=== PATIENT | female | born 1960 | race Caucasian/White ===

== ENCOUNTER 2017-01-09 14:23 | Outpatient (CLI) | payer OTHER | END 2017-01-09 14:24 | disposition home or self-care (01) | DX: R05 Cough (principal); R61 Generalized hyperhidrosis ==

== ENCOUNTER 2018-01-13 10:37 | Outpatient (CLI) | payer OTHER ==
--- NOTE | 2018-01-14 18:56 | Mammography Report ---
DIGITAL SCREENING MAMMOGRAM: 01/13/2018 CLINICAL INDICATION: A 57-year-old nulliparous patient for screening. COMPARISON: 01/2016, 05/2009. TECHNIQUE: Routine CC and MLO projections as well as bilateral laterally exaggerated craniocaudal views were obtained of the breasts. FINDINGS: The breasts again demonstrate heterogeneously dense fibroglandular parenchyma bilaterally. Coarse and punctate, typically benign calcifications are present. No suspicious masses, clustered microcalcifications, or regions of architectural distortion are identified. IMPRESSION: BENIGN FINDINGS. RECOMMENDATION: Routine annual screening unless otherwise clinically indicated. BIRADS category 2 benign findings. STANDARD QUALIFYING STATEMENTS 1. This examination was reviewed with the aid of Computed-Aided Detection (CAD). 2. A negative or benign imaging report should not delay biopsy if clinically suspicious findings are present. Consider surgical consultation if warranted. More than 5% of cancers are not identified by imaging. 3. Dense breasts may obscure an underlying neoplasm. TD: 01/14/2018 18:55
== END 2018-01-13 10:38 | disposition home or self-care (01) ==
LOC: DI 10:37
PROVIDERS: ATTEND Registered Nurse
DX: Z12.31 Encounter for screening mammogram for malignant neoplasm of breast (principal)
CPT/HCPCS: 77067

== ENCOUNTER 2018-01-13 10:38 | Outpatient (CLI) | payer OTHER ==
--- NOTE | 2018-01-13 14:07 | CT Report ---
CT OF CHEST WITHOUT CONTRAST FOR LUNG CANCER SCREENIN01/13/2018 CLINICAL INDICATION: A 57-year-old asymptomatic patient with a [id number] history of smoking, current smoker, for screening. TECHNIQUE: Axial CT images of the chest were obtained without intravenous contrast, using low dose screening technique. COMPARISON: Chest x-ray 01/09/2017. FINDINGS: The heart is not enlarged. There is mild atherosclerotic calcification of the aortic arch. No hilar or mediastinal lymphadenopathy is present. The lungs demonstrate emphysema and biapical scarring. No focal infiltrate, effusion, or pneumothorax is present. No suspicious pulmonary nodule or mass lesion is seen. Limited evaluation of upper abdominal structures demonstrates normal adrenal glands. Osseous structures demonstrate degenerative changes. IMPRESSION: EMPHYSEMA AND BIAPICAL SCARRING. NO SUSPICIOUS PULMONARY NODULE OR MASS LESION. RECOMMENDATIONS: CONTINUE ROUTINE ANNUAL SCREENING WITH LOW DOSE CT IN 12 MONTHS. LUNG RADS CATEGORY 2-BENIGN FINDINGS. TD: 01/13/2018 14:05
== END 2018-01-13 10:39 | disposition home or self-care (01) ==
LOC: DI 10:38
PROVIDERS: ATTEND Registered Nurse
DX: Z12.2 Encounter for screening for malignant neoplasm of respiratory organs (principal); J43.9 Emphysema, unspecified; R49.8 Other voice and resonance disorders; R06.2 Wheezing; F17.210 Nicotine dependence, cigarettes, uncomplicated

== ENCOUNTER 2018-02-17 09:39 | Outpatient (CLI) | payer OTHER ==
[2018-02-17 09:53] LABS: BASOPHILS # (AUTO) 0.1 10^3/uL (0.0-0.1); BASOPHILS % (AUTO) 0.9 %; EOSINOPHILS # (AUTO) 0.1 10^3/uL (0.0-0.7); EOSINOPHILS % (AUTO) 1.3 %; HGB - HEMOGLOBIN 14.7 g/dL (12.0-16.0); LYMPHOCYTES # (AUTO) 2.7 10^3/uL (1.5-3.5); LYMPHOCYTES % (AUTO) 31.6 %; MEAN CORPUSCULAR HEMOGLOBIN 27.2 pg (27.0-31.0); MEAN CORPUSCULAR HGB CONC 33.4 g/dL (32.0-36.0); MEAN CORPUSCULAR VOLUME 81.6 fL (81.0-99.0); MEAN PLATELET VOLUME 7.2 fL (7.9-10.8); MONOCYTES # (AUTO) 0.6 10^3/uL (0.0-1.0); MONOCYTES % (AUTO) 6.4 %; NEUTROPHILS # (AUTO) 5.2 10^3/uL (1.5-6.6); NEUTROPHILS % (AUTO) 59.8 %; PLT - PLATELET COUNT 234 10^3/uL (130-450); RED BLOOD COUNT 5.39 10^6/uL (4.20-5.40); RED CELL DISTRIBUTION WIDTH 15.9 % (12.0-15.0); WHITE BLOOD COUNT 8.7 x10^3/uL (4.8-10.8)
[2018-02-17 10:02] LABS: ALBUMIN 4.2 g/dL (3.2-5.5); ALBUMIN/GLOBULIN RATIO 1.3 (1.0-2.2); BILIRUBIN,TOTAL 0.3 mg/dL (0.2-1.0); CALCIUM 9.3 mg/dL (8.5-10.3); CREATININE 0.8 mg/dL (0.4-1.0); TOTAL PROTEIN 7.5 g/dL (6.7-8.2)
== END 2018-02-17 09:40 | disposition home or self-care (01) ==
LOC: LAB 09:39
PROVIDERS: ATTEND Otolaryngology Otolaryngology/Facial Plastic Surgery
DX: R49.0 Dysphonia (principal)
CPT/HCPCS: 36415; 80053; 85025; 93005

== ENCOUNTER 2018-11-30 12:01 | Outpatient (CLI) | payer OTHER ==
--- NOTE | 2018-11-30 17:18 | CT Report ---
Reason: CHRONIC MAXILLARY SINUSITIS Procedure Date: 11/30/2018 Accession Number: [id number] / [id number] Procedure: CT - Sinuses CPT Code: FULL RESULT: EXAM: CT SINUS EXAM DATE: 11/30/2018 12:13 PM. HISTORY: CHRONIC MAXILLARY SINUSITIS. COMPARISONS: None. TECHNIQUE: Routine multi-axial CT imaging performed through the sinuses. Iodinated IV contrast: None. Reconstructions: Multiplanar reformats. In accordance with CT protocol optimization, one or more of the following dose reduction techniques were utilized for this exam: automated exposure control, adjustment of mA and/or KV based on patient size, or use of iterative reconstructive technique. FINDINGS: RIGHT Frontal: Normal. Ethmoid: Normal. Maxillary: Normal. Sphenoid: Normal. Drainage Pathways: The frontal recess, ostiomeatal complex and sphenoethmoidal recess are patent and normal. LEFT Frontal: Normal. Ethmoid: Normal. Maxillary: Normal. Sphenoid: Normal. Drainage Pathways: The frontal recess, ostiomeatal complex and sphenoethmoidal recess are patent and normal. Nasal Cavity: Normal. No mass or significant anatomic abnormality evident. Osseous Structures: Anterior aspect of nasal septum bows to patient's right. A small left nasal septal spur. Orbits: Unremarkable. Other: Bilateral temporomandibular joint degenerative changes with narrowing of joint space and marginal osteophytes. IMPRESSION: 1. No sinusitis. 2. Bilateral temporomandibular joint degenerative changes. RADIA
== END 2018-11-30 12:02 | disposition home or self-care (01) ==
LOC: DI 12:01
PROVIDERS: ATTEND Otolaryngology Otolaryngology/Facial Plastic Surgery
DX: J32.0 Chronic maxillary sinusitis (principal)
CPT/HCPCS: 70486

== ENCOUNTER 2019-03-16 07:32 | Outpatient (CLI) | payer BC, OTHER ==
--- NOTE | 2019-03-18 09:06 | Ultrasound Report ---
Reason: ABDOMINAL PAIN,NAUSEA,VOMITING Procedure Date: 03/16/2019 Accession Number: [id number] / [id number] Procedure: US - Arterial Visceral Complete CPT Code: FULL RESULT: EXAM: RENAL ARTERY DOPPLER ULTRASOUND. EXAM DATE: 03/16/2019 09:18 AM. CLINICAL HISTORY: Abdominal pain, nausea, vomiting. COMPARISON: CT abdomen and pelvis 07/04/2015. TECHNIQUE: Real-time sonographic vascular imaging was performed by the hardwood floor sander through the renal arterial system with a linear transducer utilizing color-flow, Doppler flow, and spectral analysis. Multiple branch customer service representative static images were saved for review. FINDINGS: Aorta: 62cm/sec. Celiac [place]: Origin: 106.2 cm/sec. Proximal: 108.3 cm/sec. Mid: 129.4 cm/sec. Distal: 120.9 cm/sec. Hepatic Artery: 141 cm/sec. Splenic Artery: 151.4 cm/sec. Superior Mesenteric Artery Origin: 121.8 cm/sec. Proximal: 183.0 cm/sec. Mid: 128.8 cm/sec. Distal: 120.3 cm/sec. Inferior Mesenteric Artery: Origin: 131.3 cm/sec. Proximal: 127.1 cm/sec. Mid: 105.3 cm/sec. Distal: Not seen. Other: Several mobile gallstones are present. IMPRESSION: Elevated peak systolic velocities in the splenic and common hepatic arteries suggesting a stenosis greater than 70%. Confirmation could be made by CT angiography. Celiac axis, SMA, and KAITLIN appear within the normal range. Incidental note made of cholelithiasis. RADIA
== END 2019-03-16 07:33 | disposition home or self-care (01) ==
LOC: DI 07:32
PROVIDERS: ATTEND Physician Assistant
DX: R10.84 Generalized abdominal pain (principal); R11.2 Nausea with vomiting, unspecified
CPT/HCPCS: 93975

== ENCOUNTER 2019-04-29 08:40 | Outpatient (CLI) | payer OTHER ==
[2019-04-29] MEDS ORDERED: SINCALIDE 5 MCG VIAL ONE (10:08)
[2019-04-29] MEDS ORDERED: SINCALIDE IV ONE (11:49)
[2019-04-29] MEDS ORDERED: SODIUM CHLORIDE 0.9% IV ONE (11:49)
--- NOTE | 2019-04-29 14:53 | Nuclear Medicine Report ---
Reason: GENERALIZED ABDOMINAL PAIN Procedure Date: 04/29/2019 Accession Number: [id number] / [id number] Procedure: NM - Hepatobiliary HIDA w/ Rx CPT Code: FULL RESULT: EXAM: HEPATOBILIARY SCAN WITH CCK/KINEVAC ADMINISTRATION EXAM DATE: 04/29/2019 11:42 AM. CLINICAL HISTORY: GENERALIZED ABDOMINAL PAIN. COMPARISON: 03/16/2019. TECHNIQUE: Following the intravenous administration of 5.3 mCi of Tc99m Mebrofenin, a hepatobiliary scan was done centered on the liver and gallbladder in multiple sequential images and projections. Following the intravenous administration of 1.36 mcg of CCK/ Kinevac over the course of approximately 60 minutes, dynamic imaging was done and the gallbladder ejection fraction was calculated. FINDINGS: Normal extraction of tracer from the blood pool indicating normal hepatocellular function. The liver size and shape is grossly within normal limits. There is activity visualized within the bile ducts, gallbladder, and small bowel during the first hour. With CCK administration, the gallbladder demonstrates an effective contraction. The gallbladder ejection fraction is calculated to be 24%, well the lateral the lower limit of normal of 38% for a 60-minute injection. The patient did not report symptoms after CCK administration. No evidence of enteric reflux into the stomach. No significant collection of tracer remaining in the common bile duct by the end of the study. IMPRESSION: 1. Patent cystic duct. 2. Patent common bile duct. 3. Negative for acute cholecystitis. 4. No enterogastric bile reflux. 5. Gallbladder ejection fraction of 24% which in the presence of gallstones is consistent with chronic cholecystitis. RADIA
== END 2019-04-29 08:41 | disposition home or self-care (01) ==
LOC: DI 08:40
PROVIDERS: ATTEND Registered Nurse
DX: R10.84 Generalized abdominal pain (principal)
CPT/HCPCS: 78227; J7040

== ENCOUNTER 2019-05-11 09:52 | Outpatient (CLI) | payer OTHER ==
--- NOTE | 2019-05-11 11:21 | Ultrasound Report ---
Reason: PELVIC PAIN Procedure Date: 05/11/2019 Accession Number: [id number] / [id number] Procedure: US - Pelvic w/Transvaginal CPT Code: FULL RESULT: EXAM: PELVIC ULTRASOUND EXAM DATE: 05/11/2019 10:45 AM. CLINICAL HISTORY: Chronic pelvic and abdominal pain. COMPARISON: ABDOMEN/PELVIS W/ 07/04/2015 8:51 AM. TECHNIQUE: Realtime transabdominal pelvic scan performed to identify the uterus and adnexa and as an overview of other pelvic structures, followed by transvaginal scan to provide greater detail of the uterus and adnexa, with static image documentation. FINDINGS: Uterus: 5.5 x 1.5 x 3.5 cm, volume 15 cc. Anteverted position. Normal overall size and echotexture. Masses: None. Endometrium: 1 mm. Trace fluid is seen within. Cervix: Unremarkable. Right Ovary: Visualization is attempted transabdominally and transvaginally, the ovary is not seen. Left Ovary: 1.3 x 0.4 x 0.9 cm, volume approximately 1 cc. Normal echotexture and blood flow. The fallopian tube was readily identified, no hydrosalpinx is detected. Free Fluid: None. Other: None. IMPRESSION: Trace fluid within the endometrium. Ready visualization of the fallopian tube despite absence of hydrosalpinx is somewhat uncommon, especially in the postmenopausal state. Recommend correlation to history of pelvic inflammation. RADIA
== END 2019-05-11 09:53 | disposition home or self-care (01) ==
LOC: DI 09:52
PROVIDERS: ATTEND Surgery
DX: R10.2 Pelvic and perineal pain (principal)
CPT/HCPCS: 76830; 76856

== ENCOUNTER 2019-05-17 10:09 | Day surgery (SDC) | payer OTHER ==
[~2019-05-17 10:09] MED LIST: CEFAZOLIN SODIUM IN 0.9 % NACL 2 GM/100 ML BAG IV ONE
[2019-05-17] MEDS ORDERED: LACTATED RINGERS 1,000 ML IV ONE (10:35)
--- NOTE | 2019-05-17 10:37 | ANESTHESIA ---
Pre-Anesthesia VS, & Labs - Diagnosis cholecystitis - Procedure laparoscopic cholecystectomy Vital Signs: Temp Pulse Resp BP Pulse Ox 36.6 C 93 18 153/83 H 99 05/17/19 10:25 05/17/19 10:25 05/17/19 10:25 05/17/19 10:25 05/17/19 10:25 Height 5 ft 5 in Weight (kg) 66.2 kg Body Mass Index 19.3 - NPO >8 hours - Is Patient ?: Not Applicable Home Medications and Allergies Home Medications: Ambulatory Orders Sertraline [Zoloft] 50 mg PO DAILY 05/16/19 amLODIPine [Norvasc] 5 mg PO DAILY 05/16/19 Atenolol 50 mg PO DAILY 06/04/14 Diazepam 5 - 10 mg PO ONCE 06/04/14 Levothyroxine [Synthroid] 25 mcg PO QDAC 06/04/14 Sertraline [Zoloft] 50 mg PO DAILY 05/16/19 amLODIPine [Norvasc] 5 mg PO DAILY 05/16/19 Allergies/Adverse Reactions: Allergies Allergy/AdvReac Type Severity Reaction Status Date / Time bupropion HCl * Allergy Anxiety Verified 06/04/14 08:14 [From Wellbutrin] Opioids - Morphine Analogues Allergy Unknown Verified 06/04/14 08:14 Sulfa (Sulfonamide Allergy Anxiety Verified 06/04/14 08:14 Antibiotics) varenicline tartrate * Allergy Anxiety Verified 06/04/14 08:14 [From Chantix] steroids Allergy Respiratory Uncoded 06/04/14 08:14 Anes History & Medical History - Anesthetic History Anesthesia Complications: reports: No previous complications Family history of Anesthesia Complications: Denies Family history of Malignant Hyperthermia: Denies - Medical History Cardiovascular: reports: Hypertension Pulmonary: reports: COPD Gastrointestinal: reports: Hiatal hernia, Cholelithiasis, Other Urinary: reports: None Musculoskeletal: reports: Other Endocrine/Autoimmune: reports: HyPOthyroidism Skin: reports: None Smoking Status: Current every day smoker - Surgical History General: Colonoscopy, EGD Eyes Ears Nose Throat (EENT): Other Exam General: Alert, Oriented x3, Cooperative, No acute distress Dental: Loose/Frag Mouth Openin Fingerbreadth Neck Mobility: Normal Mallampati classification: II Thyromental Distance: greater than 6 cm Respiratory: Lungs clear, Normal breath sounds, No respiratory distress, No accessory muscle use Cardiovascular: Regular rate, Normal S1, Normal S2, No murmurs Plan Anesthesia Type: General Consent for Procedure(s) Verified and Reviewed: No Code Status: Attempt Resuscitation ASA classification: 2-Mild systemic disease Is this case an emergency?: No
[2019-05-17] MEDS ORDERED: LIDOCAINE 1% 10 ML MDV SUBQ ONE ×2 (11:30)
[2019-05-17] MEDS ORDERED: BUPIVACAINE 0.5%-EPI 1:200000 PF 30 ML VIAL SUBQ ONE ×2 (11:30)
[2019-05-17] MEDS ORDERED: KETOROLAC 30 MG/ML VIAL IVP ONE (11:40)
[2019-05-17] MEDS ORDERED: MIDAZOLAM 2 MG/2 ML VIAL IVP ONE (11:40)
[2019-05-17] MEDS ORDERED: fentaNYL 250 MCG/5 ML VIAL IVP ONE (11:40)
[2019-05-17] MEDS ORDERED: GLYCOPYRROLATE 1 MG/5 ML VIAL IVP ONE (11:40)
[2019-05-17] MEDS ORDERED: NEOSTIGMINE 1 MG/1 ML 10 ML MDV IVP ONE (11:40)
[2019-05-17] MEDS ORDERED: ROCURONIUM 50 MG/5 ML VIAL IVP ONE (11:40)
[2019-05-17] MEDS ORDERED: DEXMEDETOMIDINE 400 MCG/100 ML IV ONE (11:40)
[2019-05-17] MEDS ORDERED: ONDANSETRON 4 MG/2 ML VIAL IVP ONE (11:40)
[2019-05-17] MEDS ORDERED: PROPOFOL 200 MG/20 ML VIAL IVP ONE (11:40)
--- NOTE | 2019-05-17 12:02 | OPERATIVE REPORT ---
Operative Report - General Procedure Date: 05/17/19 Planned Procedure: Laparoscopic cholecystectomy Pre-Op Diagnosis: Cholelithiasis and chronic cholecystitis Procedure Performed: Laparoscopic cholecystectomy Post Op Diagnosis: Same - Procedure Note Primary Surgeon: Lon Anesthesia Provider: KATINA Malik Anesthesia Technique: General ET tube, Local Pathology: Gallbladder in formalin to pathology IV Fluids (mL): 800 Estimated Blood Loss (mL): 25 Complications: None apparent - Other Other Information/Narrative: After obtaining informed consent, the patient is brought to the operating room and placed in the supine position on the operating table. Following successful induction of general endotracheal anesthesia, appropriate padding of all bony prominences, and placement of appropriate monitors, the abdomen was prepped and draped in the standard surgical fashion. A timeout was held per ILOAP protocol. Following infiltration with local anesthetic to create a field block, an incision was created inferior to the umbilicus and carried down through the skin subcutaneous tissue to reveal the fascia below. 2-0 Vicryl retention sutures were placed on either side of the midline and the abdomen was entered under direct vision using a 15 blade scalpel.A 10 mm blunt Coughlin balloon trocar was placed in the abdominal cavity and it was insufflated to 15 mmHg pressure. The camera was placed in the abdominal cavity and we immediately visualized the right upper quadrant. The gallbladder was notably distended but charles-blue in color.The patient was placed in reverse Trendelenburg position with left side rotated toward the floor.A second 5 mm trocar was placed in the epigastrium and 2 more in the right upper quadrant again with local anesthetic.The fundus of the gallbladder was grasped and elevated superior laterally to reveal the cholecysto hepatoduodenal ligament. The cystic duct and artery were carefully defined immediately at their connection to the gallbladder. The common duct could be seen approximately a centimeter and a half into the adriano.The cystic duct was clipped 3 times proximally once distally and divided and the cystic artery clipped twice proximally once distally and divided. The gallbladder was then placed in a bag and removed via the umbilical port with a camera in the epigastric position. The camera was replaced at the umbilical position and the abdomen irrigated with warm saline solution it was aspirated of all free fluid and particulate matter.We were satisfied that hemostasis was adequate, The trochars were removed under direct vision and the abdomen was desufflated. The umbilical incision was closed in 2 layers with Vicryl Monocryl suture and Monocryl stitches were placed in the skin. All sponge, needle, and instrument counts were correct at the conclusion of the case. The patient was allowed to wake from anesthesia without difficulty and taken to the postanesthesia care unit in good condition.
[2019-05-17] MEDS ORDERED: ONDANSETRON 4 MG/2 ML VIAL IVP PRN (12:18)
[2019-05-17 14:18] VITALS: BP 117/71
== END 2019-05-17 10:10 | disposition home or self-care (01) ==
LOC: SDS 10:09
PROVIDERS: ATTEND Surgery
PROC: 0FT44ZZ Resection of Gallbladder, Percutaneous Endoscopic Approach (ICD-10-PCS; principal; 2019-05-17 11:30)
DX: K80.10 Calculus of gallbladder with chronic cholecystitis without obstruction (principal); K31.9 Disease of stomach and duodenum, unspecified; R10.32 Left lower quadrant pain; R10.31 Right lower quadrant pain; I10 Essential (primary) hypertension; J44.9 Chronic obstructive pulmonary disease, unspecified; F17.210 Nicotine dependence, cigarettes, uncomplicated; Z87.898 Personal history of other specified conditions; Z79.899 Other long term (current) drug therapy
CPT/HCPCS: 47562; J0690; J3010; J7120

== ENCOUNTER 2019-07-26 12:37 | Outpatient (CLI) | payer OTHER ==
[2019-07-26 17:58] LABS: BASOPHILS # (AUTO) 0.1 10^3/uL (0.0-0.1); BASOPHILS % (AUTO) 0.6 %; EOSINOPHILS # (AUTO) 0.9 10^3/uL (0.0-0.7); EOSINOPHILS % (AUTO) 8.9 %; HGB - HEMOGLOBIN 14.4 g/dL (12.0-16.0); LYMPHOCYTES # (AUTO) 2.7 10^3/uL (1.5-3.5); LYMPHOCYTES % (AUTO) 27.5 %; MEAN CORPUSCULAR HEMOGLOBIN 26.7 pg (27.0-31.0); MEAN CORPUSCULAR HGB CONC 32.4 g/dL (32.0-36.0); MEAN CORPUSCULAR VOLUME 82.4 fL (81.0-99.0); MEAN PLATELET VOLUME 9.5 fL (7.9-10.8); MONOCYTES # (AUTO) 0.5 10^3/uL (0.0-1.0); MONOCYTES % (AUTO) 5.2 %; NEUTROPHILS # (AUTO) 5.6 10^3/uL (1.5-6.6); NEUTROPHILS % (AUTO) 57.5 %; PLT - PLATELET COUNT 269 10^3/uL (130-450); RED BLOOD COUNT 5.39 10^6/uL (4.20-5.40); RED CELL DISTRIBUTION WIDTH 17.2 % (12.0-15.0); WHITE BLOOD COUNT 9.8 x10^3/uL (4.8-10.8)
[2019-07-26 18:47] LABS: PLATELET ESTIMATE, MANUAL NORMAL (130-450,000) (NORMAL); PLATELET MORPHOLOGY RARE GIANT PLATELETS (NORMAL); RBC MORPHOLOGY (MULTIPLE) OVALOCYTES (NORMAL)
[2019-07-26 18:48] LABS: DIFFERENTIAL COMMENT MANUAL=AUTO DIFF
[2019-07-26 19:04] LABS: FERRITIN 26.3 ng/mL (11.0-306.8)
[2019-07-26 19:07] LABS: FOLATE 17.52 ng/mL (5.90 - >24.8)
[2019-07-26 19:16] LABS: % IRON SATURATION 9 % (20-50); IRON 34 ug/dL (28-170); TOTAL IRON BINDING CAPACITY 377 ug/dL (250-450); TRANSFERRIN 269 mg/dL (192-382)
== END 2019-07-26 12:38 | disposition home or self-care (01) ==
LOC: LAB.S 12:37
PROVIDERS: ATTEND Nurse Practitioner Family
DX: D75.89 Other specified diseases of blood and blood-forming organs (principal)
CPT/HCPCS: 36415; 82607; 82728; 82746; 83090; 83540; 84466; 85025

== ENCOUNTER 2019-08-01 12:01 | Emergency (ER) | payer OTHER ==
[2019-08-01 12:21] LABS: BILIRUBIN,URINE NEGATIVE (NEGATIVE); GLUCOSE, URINE (UA) NEGATIVE (NEGATIVE); KETONES,URINE (UA) NEGATIVE (NEGATIVE); LEUKOCYTE ESTERASE, URINE NEGATIVE (NEGATIVE); NITRITE,URINE NEGATIVE (NEGATIVE); OCCULT BLOOD,URINE NEGATIVE (NEGATIVE); PH,URINE 5.5 PH (5.0-7.5); PROTEIN,URINE NEGATIVE (NEGATIVE); UROBILINOGEN,URINE 0.2 (NORMAL) E.U./dL (NORMAL)
[2019-08-01 12:23] LABS: CLARITY,URINE CLEAR (CLEAR)
[2019-08-01 12:35] LABS: BASOPHILS % (AUTO) 0.6 %; EOSINOPHILS % (AUTO) 11.6 %; HGB - HEMOGLOBIN 14.2 g/dL (12.0-16.0); LYMPHOCYTES % (AUTO) 33.2 %; MEAN CORPUSCULAR HEMOGLOBIN 25.7 pg (27.0-31.0); MEAN CORPUSCULAR HGB CONC 31.2 g/dL (32.0-36.0); MEAN CORPUSCULAR VOLUME 82.3 fL (81.0-99.0); MONOCYTES % (AUTO) 6.9 %; NEUTROPHILS % (AUTO) 47.4 %; PLT - PLATELET COUNT 250 10^3/uL (130-450); RED BLOOD COUNT 5.53 10^6/uL (4.20-5.40); RED CELL DISTRIBUTION WIDTH 17.2 % (12.0-15.0); WHITE BLOOD COUNT 9.9 x10^3/uL (4.8-10.8)
[2019-08-01 12:47] LABS: ALBUMIN 4.3 g/dL (3.2-5.5); ALBUMIN/GLOBULIN RATIO 1.2 (1.0-2.2); BILIRUBIN,TOTAL 0.3 mg/dL (0.2-1.0); CALCIUM 9.9 mg/dL (8.5-10.3); CREATININE 0.7 mg/dL (0.4-1.0); TOTAL PROTEIN 7.9 g/dL (6.7-8.2)
[2019-08-01 12:59] LABS: ABNORMAL LYMPHS % (MANUAL) 0 %; BAND NEUTROPHILS % (MANUAL) 0 %
[2019-08-01 13:00] LABS: DIFFERENTIAL COMMENT MANUAL DIFFERENTIAL; EOSINOPHILS # (MANUAL) 0.6 10^3/uL (0-0.7); LYMPHOCYTES % (MANUAL) 30 %; MONOCYTES # (MANUAL) 0.7 10^3/uL (0.0-1.0); PLATELET ESTIMATE, MANUAL NORMAL (130-450,000) (NORMAL); PLATELET MORPHOLOGY NORMAL APPEARANCE (NORMAL); RBC MORPHOLOGY (MULTIPLE) NORMAL APPEARANCE (NORMAL)
--- NOTE | 2019-08-01 13:22 | ED Physician Documentation ---
PD HPI ABD PAIN - Stated complaint Stated Complaint: ABD PX - Chief complaint Chief Complaint: Abd Pain - History obtained from History obtained from: Patient - History of Present Illness Timing - onset: How many months ago (6) Timing - duration: Months (6) Timing - details: Gradual onset, Waxing and waning Pain level max: 8 Pain level now: 8 Quality: Cramping, Pain Location: All over / everywhere Radiation: No: Chest, , Lower back, Left flank, Left shoulder, Right flank, Right shoulder, Upper back Improved by: Other (nothing) Worsened by: Eating Associated symptoms: Nausea. No: Fever, Vomiting, Hematemesis, Diarrhea, Constipation, Melena, Hematochezia, Dysuria, Hematuria, Chest pain, Dizzy, Near syncope / syncope, Loss of appetite, Weight loss, Vaginal bleeding, Vaginal dc Similar symptoms before: Other (states normal endoscopy.) Review of Systems Ten Systems: 10 systems reviewed and negative Constitutional: denies: Fever, Chills Ears: denies: Ear pain Nose: denies: Rhinorrhea / runny nose, Congestion Cardiac: denies: Chest pain / pressure Respiratory: denies: Dyspnea GI: denies: Vomiting, Diarrhea, Hematemesis, Bloody / black stool : denies: Dysuria Skin: denies: Rash Musculoskeletal: denies: Neck pain, Back pain Neurologic: denies: Headache PD PAST MEDICAL HISTORY - Past Medical History Cardiovascular: Hypertension Respiratory: COPD Endocrine/Autoimmune: HyPOthyroidism GI: Hiatal hernia, Cholelithiasis, Other : None HEENT: Other Psych: Panic attacks, Post traumatic stress disorder Musculoskeletal: Other Derm: None - Past Surgical History Past Surgical History: No General: Colonoscopy, EGD HEENT: Other - Present Medications Home Medications: Ambulatory Orders Medication Instructions Recorded Confirmed Atenolol 50 mg PO DAILY 06/04/14 05/17/19 Diazepam 5 - 10 mg PO ONCE 06/04/14 05/17/19 Levothyroxine [Synthroid] 25 mcg PO QDAC 06/04/14 05/17/19 Sertraline [Zoloft] 50 mg PO DAILY 05/16/19 05/17/19 amLODIPine [Norvasc] 5 mg PO DAILY 05/16/19 05/17/19 Diazepam [Valium] 10 mg PO Q8HR PRN #20 tablet 05/17/19 Famotidine [Pepcid] 20 mg PO BID #60 tablet 08/01/19 Ondansetron Odt [Zofran] 4 mg TL Q6H PRN #10 tablet 08/01/19 Sucralfate [Carafate] 1 gm PO ACHS #60 tablet 08/01/19 diazePAM [Valium] 5 - 10 mg PO TID PRN #15 tablet 08/01/19 traMADol [Ultram] 50 mg PO Q4-6H PRN #30 tablet 08/01/19 - Allergies Allergies/Adverse Reactions: Allergies Allergy/AdvReac Type Severity Reaction Status Date / Time bupropion HCl * Allergy Anxiety Verified 08/01/19 12:07 [From Wellbutrin] Opioids - Morphine Analogues Allergy Unknown Verified 08/01/19 12:07 Sulfa (Sulfonamide Allergy Anxiety Verified 08/01/19 12:07 Antibiotics) varenicline tartrate * Allergy Anxiety Verified 08/01/19 12:07 [From Chantix] steroids Allergy Respiratory Uncoded 08/01/19 12:07 - Social History Does the pt smoke?: Yes Smoking Status: Current every day smoker Does the pt drink ETOH?: No Does the pt have substance abuse?: No - Immunizations Immunizations are current?: Yes PD ED PE NORMAL - Vitals Vital signs reviewed: Yes - General General: Alert and oriented X 3, No acute distress, Well developed/nourished - HEENT HEENT: PERRL, Moist mucous membranes - Neck Neck: Supple, no meningeal sign - Cardiac Cardiac: RRR, Strong equal pulses - Respiratory Respiratory: No respiratory distress, Clear bilaterally - Abdomen Abdomen: Soft, Non tender, Non distended - Derm Derm: Warm and dry - Extremities Extremities: No edema - Neuro Neuro: Alert and oriented X 3 - Psych Psych: Normal mood, Normal affect Results - Vitals Vitals: Vital Signs - 24 hr 08/01/19 08/01/19 08/01/19 12:02 13:31 15:13 Temperature 36.4 C L Heart Rate 72 64 68 Respiratory 19 16 18 Rate Blood Pressure 136/83 H 130/68 131/70 H O2 Saturation 99 100 99 Oxygen O2 Source Room air - Labs Labs: Laboratory Tests 08/01/19 08/01/19 08/01/19 12:15 12:30 12:30 WBC 9.9 RBC 5.53 H Hgb 14.2 Hct 45.5 MCV 82.3 MCH 25.7 L MCHC 31.2 L RDW 17.2 H Plt Count 250 MPV 9.0 Neut # (Auto) Not Reportable Lymph # (Auto) Not Reportable Charles # (Auto) Not Reportable Eos # (Auto) Not Reportable Baso # (Auto) Not Reportable Absolute Nucleated RBC Not Reportable Total Counted 100 Band Neuts % (Manual) 0 Abnorm Lymph % (Manual) 0 Nucleated RBC % Not Reportable Neutrophils # (Manual) 5.6 Lymphocytes # (Manual) 3.0 Monocytes # (Manual) 0.7 Eosinophils # (Manual) 0.6 Basophils # (Manual) 0.0 Differential Comment MANUAL DIFFERENTIAL Manual Slide Review Indicated Platelet Estimate NORMAL (130-450,000) Platelet Morphology NORMAL APPEARANCE RBC Morph Micro Appear NORMAL APPEARANCE Sodium 138 Potassium 4.0 Chloride 102 Carbon Dioxide 26 Anion Gap 10.0 BUN 19 Creatinine 0.7 Estimated GFR (MDRD) 85 L Glucose 119 H Calcium 9.9 Total Bilirubin 0.3 AST 25 ALT 18 Alkaline Phosphatase 94 Total Protein 7.9 Albumin 4.3 Globulin 3.6 Albumin/Globulin Ratio 1.2 Lipase 23 Urine Color YELLOW Urine Clarity CLEAR Urine pH 5.5 Ur Specific [place] 1.025 Urine Protein NEGATIVE Urine Glucose (UA) NEGATIVE Urine Ketones NEGATIVE Urine Occult Blood NEGATIVE Urine Nitrite NEGATIVE Urine Bilirubin NEGATIVE Urine Urobilinogen 0.2 (NORMAL) Ur Leukocyte Esterase NEGATIVE Ur Microscopic Review NOT INDICATED Urine Culture Comments NOT INDICATED - Rads (name of study) CT abd/pelvis Radiology: Prelim report reviewed, EMP read contemporaneously, See rad report (1. No acute abnormality identified. Postsurgical changes from cholecystectomy. 2. Diverticulosis without diverticulitis. ) PD MEDICAL DECISION MAKING - ED course Complexity details: reviewed results, re-evaluated patient, considered differential, d/w patient, d/w family ED course: 59-year-old female with abdominal pain of unclear etiology. She does have a hiatal hernia. Possible this is related to gastritis. Does feel better after GI cocktail. Will place on Carafate and Pepcid for home. She is well- appearing, nontoxic. Afebrile. No evidence of postoperative complication. Recommend she follow-up with her doctor and GI for further care. Patient counseled regarding signs and symptoms for which I believe and urgent re- evaluation would be necessary. Patient with good understanding of and agreement to plan and is comfortable going home at this time This document was made in part using voice recognition software. While efforts are made to proofread this document, sound alike and grammatical errors may occur. Departure - Departure Disposition: 01 Home, Self Care Clinical Impression: Hiatal hernia Abdominal pain Qualifiers: Abdominal location: unspecified location Qualified Code(s): R10.9 - Unspecified abdominal pain Condition: Good Instructions: Hiatal Hernia, ED Abdominal Pain Unkn Cause Follow-Up: Connie Guillermo ARNP [Primary Care Provider] - Within 1 week Prescriptions: diazePAM [Valium] 5 - 10 mg PO TID PRN #15 tablet PRN Reason: Spasms Famotidine [Pepcid] 20 mg PO BID #60 tablet Ondansetron Odt [Zofran] 4 mg TL Q6H PRN #10 tablet PRN Reason: Nausea / Vomiting Sucralfate [Carafate] 1 gm PO ACHS #60 tablet traMADol [Ultram] 50 mg PO Q4-6H PRN #30 tablet PRN Reason: Abdominal Pain Comments: The cause of your symptoms may be related to your hiatal hernia. We will try you on several medications for this. You would likely benefit from a pill endoscopy. I do not have records of your upper endoscopy today for review. You may also benefit from a colonoscopy. There are no acute findings on your CT scan today. Return if you worsen. Do not drink alcohol or drive while on narcotic pain medicine. Note that many narcotic pain relievers also contain tylenol/acetaminophen. Please ensure that your total dose of acetaminophen from all sources does not exceed 3 grams (3000mg) per day. You may constipated on this medication, take a stool softener such as "Colace" twice a day while you are on it. Also recommend a fyty-vya-ohryfwt laxative such as senna or MiraLAX any day that you do not have a bowel movement. If you received narcotic pain medication in the emergency department, do not drive or operate machinery for the next 24 hours. Discharge Date/Time: 08/01/19 15:27
[2019-08-01] MEDS ORDERED: SUCRALFATE 1 GM/10 ML UDC PO STA (13:32)
[2019-08-01] MEDS ORDERED: FAMOTIDINE 20 MG TABLET PO STA (13:32)
[2019-08-01] MEDS ORDERED: MAG HYDROX/AL HYDROX/SIMETH 30 ML UDC PO STA (13:32)
[2019-08-01] MEDS ORDERED: LIDOCAINE VISCOUS 2% 15 ML UDC MM STA (13:32)
[2019-08-01] MEDS ORDERED: HYOSCYAMINE SL 0.125 MG TABLET SL STA (13:33)
[2019-08-01] MEDS ORDERED: IOVERSOL 320 100 ML VIAL IVP ONE ×2 (13:48→18:02)
--- NOTE | 2019-08-01 14:34 | CT Report ---
Reason: abd pain s/p cholecystectomy Procedure Date: 08/01/2019 Accession Number: [id number] / [id number] Procedure: CT - Abdomen/Pelvis W CPT Code: FULL RESULT: EXAM: CT ABDOMEN AND PELVIS EXAM DATE: 08/01/2019 02:04 PM. CLINICAL HISTORY: Abdominal pain s/p cholecystectomy. COMPARISONS: GALLBLADDER EF 04/29/2019 8:57 AM PELVIC W/TRANSVAGINAL 05/11/2019 10:13 AM ABDOMEN/PELVIS W/ 07/04/2015 8:51 AM. TECHNIQUE: Routine helical CT imaging was performed through the abdomen and pelvis. IV contrast: OPTI 320 100ML. Enteric contrast: No. Reconstructions: Coronal and sagittal. In accordance with CT protocol optimization, one or more of the following dose reduction techniques were utilized for this exam: automated exposure control, adjustment of mA and/or KV based on patient size, or use of iterative reconstructive technique. FINDINGS: Lung Bases: Unremarkable. Liver: Normal. Gallbladder/Bile Ducts: Postsurgical changes from cholecystectomy. The proximal common bile duct is mildly prominent and tapers in the head of the pancreas. Spleen: Normal. Pancreas: Mild atrophy. Otherwise unremarkable. Adrenal Glands: Normal. Kidneys: Normal. No hydronephrosis. Peritoneal Cavity/Bowel: There is a small hiatal hernia. There is a small diverticulum arising from the second portion of the duodenum. No evidence of a bowel obstruction. There is diverticulosis of the descending and sigmoid colon. No evidence of acute diverticulitis. No free fluid, free air or adenopathy. No acute inflammatory process. The appendix is well visualized and normal. Pelvic Organs: The bladder and uterus are unremarkable. Vasculature: There is moderate atherosclerosis. No aortic aneurysm. Bones: There are mild degenerative changes in lumbar spine. Other: None. IMPRESSION: 1. No acute abnormality identified. Postsurgical changes from cholecystectomy. 2. Diverticulosis without diverticulitis. RADIA
[2019-08-01] MEDS ORDERED: PANTOPRAZOLE 40 MG VIAL IVP STA (15:04)
[2019-08-01 15:14] VITALS: BP 131/70
== END 2019-08-01 15:27 | disposition home or self-care (01) ==
LOC: ED 12:01
DX: K44.9 Diaphragmatic hernia without obstruction or gangrene (principal); K57.30 Diverticulosis of large intestine without perforation or abscess without bleeding; Z90.49 Acquired absence of other specified parts of digestive tract; I10 Essential (primary) hypertension; F17.200 Nicotine dependence, unspecified, uncomplicated
CPT/HCPCS: 36415; 74177; 80053; 81003; 83690; 85025; 96374; 99284; A9270; Q9967; 81001; 87086

== ENCOUNTER 2019-08-23 12:33 | Outpatient (CLI) | payer OTHER ==
[2019-08-23 17:25] LABS: HGB - HEMOGLOBIN 13.4 g/dL (12.0-16.0); MEAN CORPUSCULAR HEMOGLOBIN 26.2 pg (27.0-31.0); MEAN CORPUSCULAR HGB CONC 31.7 g/dL (32.0-36.0); MEAN CORPUSCULAR VOLUME 82.8 fL (81.0-99.0); MEAN PLATELET VOLUME 9.8 fL (7.9-10.8); RED BLOOD COUNT 5.11 10^6/uL (4.20-5.40); RED CELL DISTRIBUTION WIDTH 16.1 % (12.0-15.0); WHITE BLOOD COUNT 9.2 x10^3/uL (4.8-10.8)
[2019-08-23 17:42] LABS: ALBUMIN 3.9 g/dL (3.2-5.5); ALBUMIN/GLOBULIN RATIO 1.2 (1.0-2.2); ALKALINE PHOSPHATASE 91 IU/L (42-121); ALT ALANINE AMINOTRANSFERASE 15 IU/L (10-60); AST ASPARTATE AMINOTRANSFERASE 19 IU/L (10-42); BILIRUBIN,TOTAL 0.4 mg/dL (0.2-1.0); BUN - BLOOD UREA NITROGEN 13 mg/dL (6-20); CALCIUM 9.5 mg/dL (8.5-10.3); CARBON DIOXIDE - CO2 27 mmol/L (21-32); CHLORIDE 105 mmol/L (101-111); CREATININE 0.7 mg/dL (0.4-1.0); GFR - MDRD 85 (>89); GLUCOSE 99 mg/dL (70-100); SODIUM 140 mmol/L (135-145); TOTAL PROTEIN 7.2 g/dL (6.7-8.2)
[2019-08-23 17:44] LABS: CRP - C-REACTIVE PROTEIN < 1.0 mg/dL (0-1.0)
== END 2019-08-23 12:34 | disposition home or self-care (01) ==
LOC: LAB.S 12:33
DX: R10.84 Generalized abdominal pain (principal)
CPT/HCPCS: 36415; 80053; 82607; 85027; 86140

== ENCOUNTER 2019-08-26 08:00 | Outpatient (CLI) | payer OTHER | END 2019-08-26 08:01 | disposition home or self-care (01) | LOC: LAB.R 08:00 | DX: R10.84 Generalized abdominal pain (principal) | CPT/HCPCS: 83993 ==

== ENCOUNTER 2019-09-19 14:44 | Outpatient (CLI) | payer OTHER ==
--- NOTE | 2019-09-19 16:14 | XRAY Report ---
Reason: NAUSEA VOMITING Procedure Date: 09/19/2019 Accession Number: [id number] / [id number] Procedure: XR - Abdomen 1 View X-Ray CPT Code: 71247 Final Report FULL RESULT: EXAM: ABDOMEN RADIOGRAPHY EXAM DATE: 09/19/2019 02:57 PM. CLINICAL HISTORY: Nausea, vomiting. COMPARISON: ABDOMEN/PELVIS W/ 08/01/2019 1:58 PM. TECHNIQUE: 1 view. FINDINGS: Bowel Gas Pattern: Within normal limits. No dilated loops. Other: Right upper quadrant surgical clips, likely prior cholecystectomy. No suspected video endoscopy capsule is identified. IMPRESSION: Nonobstructive bowel gas pattern. No definite radiopaque foreign body with appearance corresponding to video endoscopy capsule. RADIA
== END 2019-09-19 14:45 | disposition home or self-care (01) ==
LOC: DI 14:44
PROVIDERS: ATTEND Internal Medicine Gastroenterology
DX: R11.2 Nausea with vomiting, unspecified (principal)
CPT/HCPCS: 74018

== ENCOUNTER 2020-01-06 07:16 | Outpatient (CLI) | payer MEDICAID | END 2020-01-06 07:17 | disposition home or self-care (01) | LOC: LAB.S 07:16 | PROVIDERS: ATTEND Registered Nurse | DX: Z53.9 Procedure and treatment not carried out, unspecified reason (principal) ==

== ENCOUNTER 2020-04-03 17:18 | Outpatient (CLI) | payer MEDICAID ==
--- NOTE | 2020-04-04 12:28 | XRAY Report ---
Reason: CHEST WALL PAIN, ANTERIOR Procedure Date: 04/03/2020 Accession Number: [id number] / [id number] Procedure: XR - Chest 2 View X-Ray CPT Code: 44828 Final Report FULL RESULT: EXAM: CHEST RADIOGRAPHY 2 VIEWS EXAM DATE: 04/03/2020. CLINICAL HISTORY: Fell 1 week ago. Left rib pain and pain on inspiration. COMPARISON: PA and lateral chest on 01/30/2016. TECHNIQUE: PA and lateral views. FINDINGS: Lungs/Pleura: Normal vasculature. The lungs are clear. Mild apical pleural scarring is unchanged. No pleural fluid or pneumothorax. Mediastinum: Normal cardiac and mediastinal contours. Bones: Mild degenerative changes of the spine. Other: Right upper abdomen cholecystectomy clips. IMPRESSION: No acute abnormality. RADIA
== END 2020-04-03 17:19 | disposition home or self-care (01) ==
LOC: DI 17:18
PROVIDERS: ATTEND Surgery
DX: R07.89 Other chest pain (principal)
CPT/HCPCS: 71046

== ENCOUNTER 2020-05-28 09:55 | Outpatient (CLI) | payer MEDICAID ==
[2020-05-28 15:10] LABS: BASOPHILS # (AUTO) 0.1 10^3/uL (0.0-0.1); BASOPHILS % (AUTO) 0.5 %; EOSINOPHILS # (AUTO) 0.1 10^3/uL (0.0-0.7); EOSINOPHILS % (AUTO) 1.5 %; HGB - HEMOGLOBIN 13.8 g/dL (12.0-16.0); LYMPHOCYTES # (AUTO) 2.6 10^3/uL (1.5-3.5); LYMPHOCYTES % (AUTO) 28.3 %; MEAN CORPUSCULAR HEMOGLOBIN 25.9 pg (27.0-31.0); MEAN CORPUSCULAR HGB CONC 31.4 g/dL (32.0-36.0); MEAN CORPUSCULAR VOLUME 82.7 fL (81.0-99.0); MEAN PLATELET VOLUME 9.4 fL (7.9-10.8); MONOCYTES # (AUTO) 0.7 10^3/uL (0.0-1.0); MONOCYTES % (AUTO) 7.3 %; NEUTROPHILS # (AUTO) 5.7 10^3/uL (1.5-6.6); PLT - PLATELET COUNT 257 10^3/uL (130-450); RED BLOOD COUNT 5.32 10^6/uL (4.20-5.40); RED CELL DISTRIBUTION WIDTH 16.6 % (12.0-15.0); WHITE BLOOD COUNT 9.2 x10^3/uL (4.8-10.8)
[2020-05-28 16:09] LABS: ALBUMIN/GLOBULIN RATIO 1.4 (1.0-2.2); ALKALINE PHOSPHATASE 105 IU/L (42-121); ALT ALANINE AMINOTRANSFERASE 17 IU/L (10-60); AST ASPARTATE AMINOTRANSFERASE 20 IU/L (10-42); BILIRUBIN,TOTAL 0.4 mg/dL (0.2-1.0); BUN - BLOOD UREA NITROGEN 14 mg/dL (6-20); CALCIUM 8.8 mg/dL (8.5-10.3); CARBON DIOXIDE - CO2 24 mmol/L (21-32); CHLORIDE 108 mmol/L (101-111); CHOLESTEROL 199 mg/dL; CREATININE 0.7 mg/dL (0.4-1.0); GLUCOSE 137 mg/dL (70-100); HDL CHOLESTEROL 40 mg/dL; LDL CHOLESTEROL,CALCULATED 115 mg/dL; LDL/HDL RATIO 2.9 (<4.4); SODIUM 139 mmol/L (135-145); TOTAL PROTEIN 6.9 g/dL (6.7-8.2); VLDL CHOLESTEROL 44 mg/dL
== END 2020-05-28 09:56 | disposition home or self-care (01) ==
LOC: LAB.S 09:55
PROVIDERS: ATTEND Registered Nurse
DX: E03.9 Hypothyroidism, unspecified (principal); F17.200 Nicotine dependence, unspecified, uncomplicated; I10 Essential (primary) hypertension; F32.9 Major depressive disorder, single episode, unspecified
CPT/HCPCS: 36415; 80053; 80061; 83721; 84443; 85025